=== PATIENT | male | born 1975 | race Caucasian/White ===

== ENCOUNTER 2016-07-24 08:04 | Observation (INO) | payer OTHER, BC ==
[~2016-07-24] VITALS: Ht 188 cm; Wt 100.0 kg
[~2016-07-24 08:04] MED LIST: CENTRUM1 TAB PO; NORCO 325 MG-51 TAB PO
[2016-07-24 08:41] LABS: HEMATOCRIT 43.3 % (42.0-52.0); HEMOGLOBIN 15.4 g/dl (13.5-18.0); MEAN CELL VOLUME 92 fl (80.0-100.0); MEAN CORPUSCULAR HEMOGLOBIN 33 pg (27.0-31.0); MEAN CORPUSCULAR HGB CONC 36 g/dl (33.0-37.0); MEAN PLATELET VOLUME 8.6 fl (7.4-10.4); PLATELET COUNT 294 K/mm3 (130-400); RED BLOOD COUNT 4.73 M/mm3 (4.20-5.60); REDCELL DISTRIBUTION WIDTH-CV 11.6 % (11.5-14.5)
[2016-07-24 08:45] LABS: ADD PATHOLOGY DIFF REVIEW NO
[2016-07-24 09:12] LABS: ADJUSTED CALCIUM 9.3 mg/dL (8.4-10.2); ALBUMIN 3.8 gm/dL (3.5-5.0); BILIRUBIN,TOTAL 0.6 mg/dL (0.0-1.0); CALCIUM 9.1 mg/dL (8.4-10.2); CREATININE, serum 0.97 mg/dL (0.66-1.25); POTASSIUM 4.4 mmol/L (3.4-5.0); TOTAL PROTEIN 6.9 gm/dL (6.4-8.2)
[2016-07-24 09:19] LABS: BAND 3 % (0-10); EOSINOPHIL 3 % (0-4); PLATELET ESTIMATE NORMAL (NORMAL)
[2016-07-24 09:23] LABS: METAMYELOCYTE 1 % (0-0); MYELOCYTE 1 % (0-0); NEUTROPHILS 45 % (42.0-75.2); TOTAL CELLS COUNTED 100
[2016-07-24 11:06] LABS: PH 7 (5-8); SQUAMOUS EPITHELIAL None Seen /hpf; URINE APPEARANCE Clear; URINE BACTERIA None Seen /hpf; URINE BILIRUBIN Negative (NEGATIVE); URINE BLOOD Negative (NEGATIVE); URINE COLOR Yellow; URINE GLUCOSE Negative (NEGATIVE); URINE KETONE Negative (NEGATIVE); URINE RBC None Seen /hpf; URINE UROBILINOGEN Negative (NEGATIVE); URINE WBC None Seen /hpf
[2016-07-24 11:27] LABS: AMPHETAMINE URINE NEGATIVE; BARBITURATES URINE NEGATIVE; BENZODIAZEPINES URINE NEGATIVE; BUPRENORPHINE URINE NEGATIVE; METHADONE URINE NEGATIVE; OPIATES URINE NEGATIVE; OXYCODONE URINE NEGATIVE; PHENCYCLIDINE URINE NEGATIVE; PROPOXYPHENE URINE NEGATIVE; THC CANNABINOIDS URINE NEGATIVE
[2016-07-24 14:45] VITALS: BP 126/82; PULSE 79; TEMP 98.2
[2016-07-24 18:06] LABS: HEMATOCRIT 41.2 % (42.0-52.0); HEMOGLOBIN 14.3 g/dl (13.5-18.0)
[2016-07-24 18:30] VITALS: BP 133/85; PULSE 85; TEMP 98.3
[2016-07-24 21:10] VITALS: BP 126/66; PULSE 79; TEMP 98.2
[2016-07-24 22:53] LABS: HEMATOCRIT 38.6 % (42.0-52.0); HEMOGLOBIN 13.7 g/dl (13.5-18.0)
[2016-07-25 01:25] VITALS: BP 117/71; PULSE 82; TEMP 98
[2016-07-25 04:36] VITALS: BP 126/73; PULSE 89; TEMP 98.6
[2016-07-25 07:02] LABS: HEMATOCRIT 37.4 % (42.0-52.0); HEMOGLOBIN 13.2 g/dl (13.5-18.0)
[2016-07-25 07:20] LABS: CALCIUM 8.7 mg/dL (8.4-10.2); CREATININE, serum 0.9 mg/dL (0.66-1.25); POTASSIUM 4.1 mmol/L (3.4-5.0)
[2016-07-25 14:03] VITALS: BP 129/79; PULSE 92; TEMP 98
[2016-07-25 14:19] LABS: HEMATOCRIT 40.1 % (42.0-52.0); HEMOGLOBIN 14.2 g/dl (13.5-18.0)
[2016-07-25 18:38] VITALS: BP 142/96; PULSE 87; TEMP 98.1
== END 2016-07-25 18:24 | disposition home or self-care (01) ==
LOC: COL.ER 08:04 → JCC 13:49
PROVIDERS: Emergency Medicine; Surgery
DX: S06.9X9A Unspecified intracranial injury with loss of consciousness of unspecified duration, initial encounter (principal); S22.21XA Fracture of manubrium, initial encounter for closed fracture; S22.049A Unspecified fracture of fourth thoracic vertebra, initial encounter for closed fracture; V43.52XA Car driver injured in collision with other type car in traffic accident, initial encounter; Y92.414 Local residential or business street as the place of occurrence of the external cause
CPT/HCPCS: A9284; G0378; J1170; J1885; J2270; J7030; Q9967

== ENCOUNTER 2017-09-11 06:33 | Emergency (ER) | payer BC ==
[~2017-09-11] VITALS: Ht 188 cm; Wt 103.2 kg
[2017-09-11 08:15] LABS: BASO % 0.2 % (0.0-2.0); EOS # 0.2 (0.0-0.7); EOS % 1.3 % (0-4.0); GRAN # 9.5 (1.4-6.5); GRAN % 63.9 % (42.2-75.2); HEMATOCRIT 42.9 % (42.0-52.0); HEMOGLOBIN 15.4 g/dl (13.5-18.0); LYMPH # 3.7 (1.2-3.4); LYMPH % 24.6 % (20.0-51.0); MEAN CELL VOLUME 89 fl (80.0-100.0); MEAN CORPUSCULAR HEMOGLOBIN 32 pg (27.0-31.0); MEAN CORPUSCULAR HGB CONC 36 g/dl (33.0-37.0); MEAN PLATELET VOLUME 8.4 fl (7.4-10.4); MONO # 1.4 (0.1-0.6); MONO % 9.5 % (1.7-9.3); PLATELET COUNT 278 K/mm3 (130-400); RED BLOOD COUNT 4.81 M/mm3 (4.20-5.60); REDCELL DISTRIBUTION WIDTH-CV 11.8 % (11.5-14.5)
[2017-09-11 08:17] LABS: ALBUMIN 3.6 gm/dL (3.5-5.0); BILIRUBIN,TOTAL 0.4 mg/dL (0.0-1.0); CALCIUM 8.5 mg/dL (8.4-10.2); CREATININE, serum 0.84 mg/dL (0.66-1.25); POTASSIUM 3.9 mmol/L (3.4-5.0); TOTAL PROTEIN 6.8 gm/dL (6.4-8.2)
[2017-09-11 09:19] LABS: COLLECTION METHOD CLEAN CATCH
[2017-09-11 09:33] LABS: MUCOUS Present /lpf; PH 6 (5-8); SQUAMOUS EPITHELIAL None Seen /hpf; URINE APPEARANCE Clear; URINE BACTERIA None Seen /hpf; URINE BILIRUBIN Negative (NEGATIVE); URINE BLOOD 1+ (NEGATIVE); URINE COLOR Yellow; URINE GLUCOSE Negative (NEGATIVE); URINE KETONE Negative (NEGATIVE); URINE LEUKOCYTE ESTERASE Negative (NEGATIVE); URINE NITRATE Negative (NEGATIVE); URINE PROTEIN(semi-quant) Negative (NEGATIVE)
[2017-09-11] MEDS ORDERED: VOLTAREN 75 DR75 MG PO (09:42)
[2017-09-11] MEDS ORDERED: CEPHALEXIN500 M1 PO (09:42)
[2017-09-11 10:45] VITALS: BP 135/89; PULSE 63; TEMP 97.7
== END 2017-09-11 10:42 | disposition home or self-care (01) ==
LOC: COL.ER 06:33
PROVIDERS: Emergency Medicine
DX: S40.011A Contusion of right shoulder, initial encounter (principal); S70.01XA Contusion of right hip, initial encounter; S40.811A Abrasion of right upper arm, initial encounter; S40.211A Abrasion of right shoulder, initial encounter; F17.210 Nicotine dependence, cigarettes, uncomplicated; Z23 Encounter for immunization; W22.8XXA Striking against or struck by other objects, initial encounter
CPT/HCPCS: J0690; J2765; J3010; J7030